=== PATIENT | female | born 1970 | race Caucasian/White ===

== ENCOUNTER → 2017-07-24 | Outpatient (CLI) | payer BC ==
--- NOTE | 2017-07-26 14:58 | MRI ---
STUDY: MRI OF THE BRAIN WITHOUT GADOLINIUM HISTORY: Migraine with aura. Chronic headaches. Technique: Multiplanar multi-sequence MRI of the brain was obtained utilizing standard departmental p rotocol. Sagittal and axial T1, axial T2, FLAIR, diffusion (DWI/ADC) images through the brain were pe rformed. Comparison: None. Findings: The sulci, cisterns and ventricles are age appropriate. There are multiple scattered foci of T2 prolo ngation in the periventricular and subcortical white matter of both hemispheres. This is a nonspecifi c finding which may be seen with microangiopathic change or demyelinating disease in a patient of thi s age. These findings may also be seen in neurologically normal individuals and in the setting of claudia jakub. There is no evidence of acute territorial infarction, hemorrhage, mass, mass effect, or midline shift . There are no abnormal intra-axial or extra-axial fluid collections. The major intracranial vascular flow voids appear intact. The vertebral arteries are codominant. IMPRESSION: 1. No evidence of acute intracranial abnormality. 2. Nonspecific white matter change. Clinical correlation is recommended. Reported By:
== END ==
LOC: RAD 15:33
PROVIDERS: ATTEND Nurse Practitioner Family
DX: G43.519 Persistent migraine aura without cerebral infarction, intractable, without status migrainosus (principal)
CPT/HCPCS: 70551

== ENCOUNTER → 2017-10-23 | Outpatient (CLI) | payer BC ==
--- NOTE | 2017-10-23 16:26 | CT ---
History: Sinusitis, left eye drainage, swelling, and redness. Study: CT sinus without contrast. Comparison: MRI brain dated July 24, 2017. Technique: Multiple contiguous axial images of the sinuses without contrast. Coronal/sagittal reforma ts were obtained. Findings: Moderate to severe mucosal thickening of the left paranasal sinuses. This is worse within t he left frontal sinus. Postsurgical changes status post partial ethmoid air cell resection and bilate ral uncinectomies. The right paranasal sinuses appear clear. The lamina papyracea appear intact. Ther e is no significant nasal septum deviation. The right sphenoethmoidal recess and frontoethmoidal rece ss are patent. The left frontal ethmoidal recess and sphenoethmoidal recess appear obstructed. The or bits are unremarkable. The visualized bones and surrounding soft tissues are unremarkable. Impression: Sinus disease as above. Reported By:
== END ==
LOC: RAD 15:12
PROVIDERS: ATTEND Nurse Practitioner Family
DX: J32.8 Other chronic sinusitis (principal)
CPT/HCPCS: 70486

== ENCOUNTER 2019-04-24 08:00 | Observation (INO) ==
[2019-04-24] MEDS ORDERED: SOLU-Medrol 125 MG VIAL ONE (08:16)
[2019-04-24] MEDS ORDERED: SOLU-Medrol 125 MG VIAL IVP ONE (08:18)
[2019-04-24] MEDS ORDERED: NS 1000 ML 1,000 ML ONE (08:22)
--- NOTE | 2019-04-24 08:33 | DR.PROGNOT ---
Hospital Progress Notes - Progress Note for Day of: Progress Note Date: 04/24/19 - Chief Complaint Chief Complaint: 48y female was admitted with progresive facial edema and allergic reaction involving face , back , chest wall and extremities . no SOB now but she feels some pressure . no wheezing . h/o recurrent sinusitis with facial edema in the past but not as severe . see H&P - Past Medical Family Social History Past Med/Fam/Surg Hx: No changes since H&P Allergies: Allergies verapamil Adverse Reaction (Verified 09/28/18 07:32) - Vital Signs Vital Signs: Blood Pressure 124/69 - Physical Exam Oriented: Normal Eyes: Other (severe facial edema ) Ear: Normal Nose: Normal Throat: Normal Respiratory: Normal, OTHER (no wheezing ) GI:Auscultation: Normal GI: Tenderness: Normal Skin: Other (allergic reaction on the back and legs) - Assessment and Plan 1: severe allergic reaction with facial edema . recurrent severe sinusitis with facial edema . on IV steroids and IV ATB . close observation for any resperatory distress . to have head CT , chest xray anf EKG.
[2019-04-24] MEDS: NS 1000 ML 1,000 ML IV SCH (08:47)
[2019-04-24 09:06] LABS: BASOPHILS # (AUTO) 0.1 X10^3/uL (0.0-0.1); BASOPHILS % (AUTO) 0.8 % (0.2-1.0); EOSINOPHILS # (AUTO) 0.2 x10^3/uL (0.0-0.2); EOSINOPHILS % (AUTO) 1.4 % (0.9-2.9); HEMATOCRIT 47.2 % (36.0-47.0); HEMOGLOBIN 16.2 g/dL (12.0-16.0); LYMPHOCYTES # (AUTO) 1.3 X10^3/uL (1.3-2.9); LYMPHOCYTES % (AUTO) 10.8 % (21.0-51.0); MEAN CORPUSCULAR HEMOGLOBIN 33.5 pg (27.0-34.0); MEAN CORPUSCULAR HGB CONC 34.4 g/dL (33.0-35.0); MEAN CORPUSCULAR VOLUME 97.2 fL (80.0-100.0); MEAN PLATELET VOLUME 8.7 fL (7.4-11.0); MONOCYTES # (AUTO) 0.7 x10^3/uL (0.3-0.8); MONOCYTES % (AUTO) 6.3 % (0.0-13.0); NEUTROPHILS # (AUTO) 9.5 x10^3/uL (2.2-4.8); NEUTROPHILS % (AUTO) 80.7 % (42.0-75.0); PLATELET COUNT 228 X10^3/uL (150.0-450.0); RED BLOOD COUNT 4.85 X10^6/uL (3.5-5.4); RED CELL DISTRIBUTION WIDTH 12.4 % (11.6-16.5); WHITE BLOOD COUNT 11.8 X10^3/uL (3.6-10.0)
[2019-04-24] MEDS: ROCEPHIN VIAL 1 GRAM IVP SCH ×2 (09:09→20:52)
[2019-04-24 09:19] LABS: ALANINE AMINOTRANSFERASE 10 Units/L (12-78); ALBUMIN 3.6 g/dL (3.4-5.0); ALKALINE PHOSPHATASE 65 Units/L (46-116); ASPARTATE AMINO TRANSFERASE 12 Units/L (15-37); BLOOD UREA NITROGEN 7 mg/dL (7-18); CALCIUM 9.5 mg/dL (8.5-10.1); CARBON DIOXIDE 27.2 mmol/L (21-32); CHLORIDE 105 mmol/L (98-107); CREATININE 0.77 mg/dL (0.55-1.02); SODIUM 140 mmol/L (136-145); eGFR NON BLACK RACES > 60 (>60)
[2019-04-24] MEDS: TEMOVATE CREAM EXT SCH ×2 (11:25→20:30)
[2019-04-24] MEDS: BENADRYL CAP 50 MG PO SCH ×2 (11:25→20:36)
[2019-04-24] MEDS ORDERED: NS 100 ML IV 100 ML ONE (11:27)
--- NOTE | 2019-04-24 11:39 | RAD ---
HISTORY: Shortness of breath Study: AP portable chest Comparison: None Findings: The lungs are clear. The heart size is normal. Mild tortuosity of the aorta is present. No acute bony abnormalities are identified. IMPRESSION: 1. No radiographic evidence of acute cardiopulmonary disease. Reported By:
[2019-04-24 11:44] VITALS: BMI 24.9
[2019-04-24] MEDS ORDERED: MILK OF MAGNESIA PO PRN (11:52)
--- NOTE | 2019-04-24 12:50 | CT ---
HEAD CT WITHOUT AND WITH IV CONTRAST CLINICAL INDICATION: Severe angioedema. Acute sinusitis. TECHNIQUE: Axial CT images from skull base to vertex without and with IV contrast. Dose reduction techniques including Automated Exposure Control (AEC) and adjustment of mA and kV were utlized. COMPARISON: None FINDINGS: There is no abnormal brain parenchymal density. There is no evidence of acute infarction, intracranial hemorrhage, mass or mass effect, or abnormal extra-axial collection. The density of the larger dural venous sinuses is normal. The ventricles are normal in size, shape and position. The skull base and calvarium are normal. The included paranasal sinuses and mastoid air cells are predominantly clear. Soft tissue swelling the face appears to be present. Following administration of intravenous contrast material, there is no abnormal parenchymal or leptomeningeal enhancement. IMPRESSION: 1. No acute intracranial abnormality. 2. No evidence of acute or chronic sinusitis. 3. Soft tissue swelling the face. Reported By:
[2019-04-24] MEDS ORDERED: TYLENOL 325 MG TAB PO PRN (13:00)
[2019-04-24] MEDS: PEPCID 20 MG IV PREMIX* 20 MG/50 ML BAG IV SCH ×3 (13:47→20:35)
[2019-04-24] MEDS: SOLU-Medrol 125 MG VIAL IVP SCH ×2 (15:31→20:52)
[2019-04-24] MEDS: TORADOL TAB PO PRN (15:39)
[2019-04-24] MEDS: SINGULAIR TAB 10 MG PO SCH (20:36)
[2019-04-24] MEDS: COLACE CAP 100 MG PO SCH (20:37)
[2019-04-25] MEDS: SOLU-Medrol 125 MG VIAL IVP SCH ×4 (04:57→20:26)
[2019-04-25] MEDS: BENADRYL CAP 50 MG PO SCH ×3 (04:57→20:26)
[2019-04-25 05:12] LABS: BASOPHILS % (AUTO) 0.1 % (0.2-1.0); HEMATOCRIT 39.8 % (36.0-47.0); LYMPHOCYTES # (AUTO) 0.7 X10^3/uL (1.3-2.9); LYMPHOCYTES % (AUTO) 5.2 % (21.0-51.0); MEAN CORPUSCULAR HEMOGLOBIN 33.6 pg (27.0-34.0); MEAN CORPUSCULAR HGB CONC 34.7 g/dL (33.0-35.0); MEAN CORPUSCULAR VOLUME 97.1 fL (80.0-100.0); MEAN PLATELET VOLUME 8.9 fL (7.4-11.0); MONOCYTES # (AUTO) 0.3 x10^3/uL (0.3-0.8); MONOCYTES % (AUTO) 1.9 % (0.0-13.0); NEUTROPHILS # (AUTO) 13.1 x10^3/uL (2.2-4.8); NEUTROPHILS % (AUTO) 92.8 % (42.0-75.0); PLATELET COUNT 219 X10^3/uL (150.0-450.0); RED CELL DISTRIBUTION WIDTH 12.3 % (11.6-16.5); WHITE BLOOD COUNT 14.1 X10^3/uL (3.6-10.0)
[2019-04-25 05:22] LABS: ALANINE AMINOTRANSFERASE 11 Units/L (12-78); ALBUMIN 2.7 g/dL (3.4-5.0); ALKALINE PHOSPHATASE 52 Units/L (46-116); ASPARTATE AMINO TRANSFERASE 7 Units/L (15-37); BLOOD UREA NITROGEN 9 mg/dL (7-18); CALCIUM 8.3 mg/dL (8.5-10.1); CARBON DIOXIDE 24.3 mmol/L (21-32); CHLORIDE 106 mmol/L (98-107); COR CA(FOR HYPOALB) 9.3 mg/dL (8.5-10.1); COR NA(FOR HYPERGLY) 141 mmol/L (136-145); CREATININE 0.75 mg/dL (0.55-1.02); MAGNESIUM 1.8 mg/dL (1.7-2.9); SODIUM 139 mmol/L (136-145); TOTAL PROTEIN 5.9 g/dL (6.4-8.2); eGFR NON BLACK RACES > 60 (>60)
[2019-04-25 05:53] LABS: HEMOGLOBIN 13.8 g/dL (12.0-16.0)
[2019-04-25 05:54] LABS: BAND NEUTROPHILS % 3 % (0-10); PLATELET MORPHOLOGY COMMENT NORMAL (NORMAL)
[2019-04-25] MEDS ORDERED: POTASSIUM CHLORIDE LIQ 20 MEQ UDC PO PRN (05:54)
[2019-04-25] MEDS ORDERED: K-RIDER 10 MEQ/NS 100 ML 10 MEQ/100 ML BAG IV PRN (05:54)
[2019-04-25] MEDS ORDERED: KLOR-CON PO PRN (05:54)
[2019-04-25] MEDS ORDERED: MICRO K EXTEN CAP 10 MEQ PO PRN (05:54)
[2019-04-25] MEDS ORDERED: POTASSIUM CHL 40 MEQ/NS 0.45% 500 ML IV PRN (05:54)
[2019-04-25] MEDS ORDERED: K-DUR TAB 20 MEQ PO PRN (05:54)
[2019-04-25] MEDS ORDERED: POTASSIUM CHL 60 MEQ/NS 0.45% 500 ML IV PRN (05:54)
[2019-04-25] MEDS: NS 1000 ML 1,000 ML IV SCH ×2 (06:21→08:37)
[2019-04-25] MEDS: PEPCID 20 MG IV PREMIX* 20 MG/50 ML BAG IV SCH ×2 (08:31→20:26)
[2019-04-25] MEDS: TEMOVATE CREAM EXT SCH ×2 (08:33→20:26)
[2019-04-25] MEDS: ROCEPHIN VIAL 1 GRAM IVP SCH ×2 (08:33→20:26)
--- NOTE | 2019-04-25 09:03 | DR.PROGNOT ---
Hospital Progress Notes - Progress Note for Day of: Progress Note Date: 04/25/19 - Chief Complaint Chief Complaint: facial swelling is less , able to open her eyes . no SOB , no wheezing . O2 sat is normal . on steroids and ATB, - Past Medical Family Social History Past Med/Fam/Surg Hx: No changes since H&P Allergies: Allergies verapamil Adverse Reaction (Severe, Verified 04/24/19 08:33) RASH SATISH HAIR COLOR Allergy (Severe, Uncoded 04/24/19 08:33) ANEMIA TAPE Allergy (Severe, Uncoded 04/24/19 08:33) RASH - Vital Signs Vital Signs: Temperature 98.9 F Pulse Rate [Right Brachial] 102 Respiratory Rate 18 Blood Pressure [Right Arm] 145/88 Blood Pressure 124/69 O2 Sat by Pulse Oximetry 99 - Physical Exam Oriented: Normal Eyes: Other (severe facial edema ) Ear: Normal Nose: Normal Throat: Normal Respiratory: Normal, OTHER (no wheezing ) GI:Auscultation: Normal GI: Tenderness: Normal Skin: Other (allergic reaction on the back and legs) Speech Pattern: Clear, Appropriate - Laboratory and Diagnostics Result Diagrams: 04/25/19 04:13 04/25/19 04:13 Labs: Laboratory WBC 14.1 X10^3/uL (3.6-10.0) H 04/25/19 04:13 RBC 4.10 X10^6/uL (3.5-5.4) 04/25/19 04:13 Hgb 13.8 g/dL (12.0-16.0) D 04/25/19 04:13 Hct 39.8 % (36.0-47.0) 04/25/19 04:13 MCV 97.1 fL (80.0-100.0) 04/25/19 04:13 MCH 33.6 pg (27.0-34.0) 04/25/19 04:13 MCHC 34.7 g/dL (33.0-35.0) 04/25/19 04:13 RDW 12.3 % (11.6-16.5) 04/25/19 04:13 Plt Count 219 X10^3/uL (150.0-450.0) 04/25/19 04:13 Plt Count Comment Adequate (ADEQUATE) 04/25/19 04:13 MPV 8.9 fL (7.4-11.0) 04/25/19 04:13 Neut % (Auto) 92.8 % (42.0-75.0) H 04/25/19 04:13 Lymph % (Auto) 5.2 % (21.0-51.0) L 04/25/19 04:13 [place] % (Auto) 1.9 % (0.0-13.0) 04/25/19 04:13 Eos % (Auto) 0.0 % (0.9-2.9) L 04/25/19 04:13 Baso % (Auto) 0.1 % (0.2-1.0) L 04/25/19 04:13 Neut # (Auto) 13.1 x10^3/uL (2.2-4.8) H 04/25/19 04:13 Lymph # (Auto) 0.7 X10^3/uL (1.3-2.9) L 04/25/19 04:13 [place] # (Auto) 0.3 x10^3/uL (0.3-0.8) 04/25/19 04:13 Eos # (Auto) 0.0 x10^3/uL (0.0-0.2) 04/25/19 04:13 Baso # (Auto) 0.0 X10^3/uL (0.0-0.1) 04/25/19 04:13 Absolute Nucleated RBC 0.0 /100WBC 04/25/19 04:13 Total Counted 100 04/25/19 04:13 Neutrophils % (Manual) 91 % (39-76) H 04/25/19 04:13 Band Neutrophils % 3 % (0-10) 04/25/19 04:13 Lymphocytes % (Manual) 6 % (13-43) L 04/25/19 04:13 Plt Morphology Comment Normal (NORMAL) 04/25/19 04:13 RBC Morphology Normal (NORMAL) 04/25/19 04:13 Sodium 139 mmol/L (136-145) 04/25/19 04:13 Corrected Sodium 141 mmol/L (136-145) 04/25/19 04:13 Potassium 3.3 mmol/L (3.5-5.1) L 04/25/19 04:13 Chloride 106 mmol/L (98-107) 04/25/19 04:13 Carbon Dioxide 24.3 mmol/L (21-32) 04/25/19 04:13 BUN 9 mg/dL (7-18) 04/25/19 04:13 Creatinine 0.75 mg/dL (0.55-1.02) 04/25/19 04:13 Est GFR (MDRD) Af Amer > 60 (>60) 04/25/19 04:13 Est GFR (MDRD) Non-Af > 60 (>60) 04/25/19 04:13 Glucose 173 mg/dL (65-99) H 04/25/19 04:13 Calcium 8.3 mg/dL (8.5-10.1) L 04/25/19 04:13 Corrected Calcium 9.3 mg/dL (8.5-10.1) 04/25/19 04:13 Magnesium 1.8 mg/dL (1.7-2.9) 04/25/19 04:13 Total Bilirubin 0.30 mg/dL (0.2-1.0) 04/25/19 04:13 AST 7 Units/L (15-37) L 04/25/19 04:13 ALT 11 Units/L (12-78) L 04/25/19 04:13 Alkaline Phosphatase 52 Units/L (46-116) 04/25/19 04:13 Total Protein 5.9 g/dL (6.4-8.2) L 04/25/19 04:13 Albumin 2.7 g/dL (3.4-5.0) L 04/25/19 04:13 Globulin 3.2 g/dL (2.5-4.5) 04/25/19 04:13 Albumin/Globulin Ratio 0.8 Ratio (1.1-2.1) L 04/25/19 04:13 - Assessment and Plan 1: severe allergic reaction with facial edema . h/o recurrent sinusitis. on IV steroids and IV ATB . close observation for any respiratory distress . same IV steroids and ATB. - Problem Patient Problems: Patient Problems Edema (Acute) R60.9 Allergic reaction (Acute) T78.40XA
[2019-04-25] MEDS: FLONASE NASAL SPRAY ENOSTRIL SCH (10:58)
[2019-04-25] MEDS ORDERED: ARTIFICIAL TEARS DROPS AFFEYE PRN (14:08)
[2019-04-25] MEDS: COLACE CAP 100 MG PO SCH ×2 (20:26→21:01)
[2019-04-25] MEDS: SINGULAIR TAB 10 MG PO SCH (20:26)
[2019-04-25] MEDS: TORADOL TAB PO PRN (20:28)
[2019-04-26] MEDS: BENADRYL CAP 50 MG PO SCH ×2 (02:19→10:27)
[2019-04-26] MEDS: SOLU-Medrol 125 MG VIAL IVP SCH ×2 (02:19→09:00)
[2019-04-26 05:45] LABS: BASOPHILS % (AUTO) 0 % (0.2-1.0); HEMATOCRIT 40.8 % (36.0-47.0); HEMOGLOBIN 13.9 g/dL (12.0-16.0); LYMPHOCYTES # (AUTO) 0.6 X10^3/uL (1.3-2.9); LYMPHOCYTES % (AUTO) 4.4 % (21.0-51.0); MEAN CORPUSCULAR HEMOGLOBIN 33.3 pg (27.0-34.0); MEAN CORPUSCULAR HGB CONC 34.1 g/dL (33.0-35.0); MEAN CORPUSCULAR VOLUME 97.4 fL (80.0-100.0); MEAN PLATELET VOLUME 9.4 fL (7.4-11.0); MONOCYTES # (AUTO) 0.2 x10^3/uL (0.3-0.8); MONOCYTES % (AUTO) 1.5 % (0.0-13.0); NEUTROPHILS # (AUTO) 11.7 x10^3/uL (2.2-4.8); NEUTROPHILS % (AUTO) 94.1 % (42.0-75.0); PLATELET COUNT 218 X10^3/uL (150.0-450.0); RED BLOOD COUNT 4.18 X10^6/uL (3.5-5.4); RED CELL DISTRIBUTION WIDTH 12.4 % (11.6-16.5); WHITE BLOOD COUNT 12.5 X10^3/uL (3.6-10.0)
[2019-04-26 05:54] LABS: ALANINE AMINOTRANSFERASE 11 Units/L (12-78); ALBUMIN 2.8 g/dL (3.4-5.0); ALKALINE PHOSPHATASE 49 Units/L (46-116); ASPARTATE AMINO TRANSFERASE < 6 Units/L (15-37); BLOOD UREA NITROGEN 11 mg/dL (7-18); CARBON DIOXIDE 24.9 mmol/L (21-32); CHLORIDE 106 mmol/L (98-107); COR NA(FOR HYPERGLY) 142 mmol/L (136-145); CREATININE 0.66 mg/dL (0.55-1.02); SODIUM 141 mmol/L (136-145); eGFR NON BLACK RACES > 60 (>60)
[2019-04-26 06:50] LABS: PLATELET MORPHOLOGY COMMENT NORMAL (NORMAL)
[2019-04-26] MEDS: ROCEPHIN VIAL 1 GRAM IVP SCH (09:00)
[2019-04-26] MEDS: PEPCID 20 MG IV PREMIX* 20 MG/50 ML BAG IV SCH (09:00)
[2019-04-26] MEDS: FLONASE NASAL SPRAY ENOSTRIL SCH (09:00)
[2019-04-26] MEDS: TEMOVATE CREAM EXT SCH (09:00)
[2019-04-26] MEDS: NS 1000 ML 1,000 ML IV SCH (10:26)
[2019-04-26 10:47] VITALS: BP 158/86
--- NOTE | 2019-04-26 12:50 | DR.PROGNOT ---
Hospital Progress Notes - Progress Note for Day of: Progress Note Date: 04/26/19 - Chief Complaint Chief Complaint: facial swelling is less , able to open her eyes . no SOB , no wheezing . O2 sat is normal . on steroids and ATB, - Past Medical Family Social History Past Med/Fam/Surg Hx: No changes since H&P Allergies: Allergies verapamil Adverse Reaction (Severe, Verified 04/24/19 08:33) RASH SATISH HAIR COLOR Allergy (Severe, Uncoded 04/24/19 08:33) ANEMIA TAPE Allergy (Severe, Uncoded 04/24/19 08:33) RASH - Vital Signs Vital Signs: Temperature 97.7 F Pulse Rate [Right Brachial] 88 Respiratory Rate 18 Blood Pressure [Right Arm] 158/86 Blood Pressure 124/69 O2 Sat by Pulse Oximetry 97 - Physical Exam Oriented: Normal Eyes: Other (severe facial edema ) Ear: Normal Nose: Normal Throat: Normal Respiratory: Normal, OTHER (no wheezing ) GI:Auscultation: Normal GI: Tenderness: Normal Skin: Other (allergic reaction on the back and legs) Speech Pattern: Clear, Appropriate - Laboratory and Diagnostics Result Diagrams: 04/26/19 04:42 04/26/19 04:42 Labs: Laboratory WBC 12.5 X10^3/uL (3.6-10.0) H 04/26/19 04:42 RBC 4.18 X10^6/uL (3.5-5.4) 04/26/19 04:42 Hgb 13.9 g/dL (12.0-16.0) 04/26/19 04:42 Hct 40.8 % (36.0-47.0) 04/26/19 04:42 MCV 97.4 fL (80.0-100.0) 04/26/19 04:42 MCH 33.3 pg (27.0-34.0) 04/26/19 04:42 MCHC 34.1 g/dL (33.0-35.0) 04/26/19 04:42 RDW 12.4 % (11.6-16.5) 04/26/19 04:42 Plt Count 218 X10^3/uL (150.0-450.0) 04/26/19 04:42 Plt Count Comment Adequate (ADEQUATE) 04/26/19 04:42 MPV 9.4 fL (7.4-11.0) 04/26/19 04:42 Neut % (Auto) 94.1 % (42.0-75.0) H 04/26/19 04:42 Lymph % (Auto) 4.4 % (21.0-51.0) L 04/26/19 04:42 [place] % (Auto) 1.5 % (0.0-13.0) 04/26/19 04:42 Eos % (Auto) 0.0 % (0.9-2.9) L 04/26/19 04:42 Baso % (Auto) 0 % (0.2-1.0) L 04/26/19 04:42 Neut # (Auto) 11.7 x10^3/uL (2.2-4.8) H 04/26/19 04:42 Lymph # (Auto) 0.6 X10^3/uL (1.3-2.9) L 04/26/19 04:42 [place] # (Auto) 0.2 x10^3/uL (0.3-0.8) L 04/26/19 04:42 Eos # (Auto) 0.0 x10^3/uL (0.0-0.2) 04/26/19 04:42 Baso # (Auto) 0.0 X10^3/uL (0.0-0.1) 04/26/19 04:42 Absolute Nucleated RBC 0.0 /100WBC 04/26/19 04:42 Total Counted 100 04/26/19 04:42 Neutrophils % (Manual) 92 % (39-76) H 04/26/19 04:42 Band Neutrophils % 3 % (0-10) 04/25/19 04:13 Lymphocytes % (Manual) 7 % (13-43) L 04/26/19 04:42 Monocytes % (Manual) 1 % (4-9) L 04/26/19 04:42 Plt Morphology Comment Normal (NORMAL) 04/26/19 04:42 RBC Morphology Normal (NORMAL) 04/26/19 04:42 Sodium 141 mmol/L (136-145) 04/26/19 04:42 Corrected Sodium 142 mmol/L (136-145) 04/26/19 04:42 Potassium 3.7 mmol/L (3.5-5.1) 04/26/19 04:42 Chloride 106 mmol/L (98-107) 04/26/19 04:42 Carbon Dioxide 24.9 mmol/L (21-32) 04/26/19 04:42 BUN 11 mg/dL (7-18) 04/26/19 04:42 Creatinine 0.66 mg/dL (0.55-1.02) 04/26/19 04:42 Est GFR (MDRD) Af Amer > 60 (>60) 04/26/19 04:42 Est GFR (MDRD) Non-Af > 60 (>60) 04/26/19 04:42 Glucose 150 mg/dL (65-99) H 04/26/19 04:42 Calcium 8.0 mg/dL (8.5-10.1) L 04/26/19 04:42 Corrected Calcium 9.0 mg/dL (8.5-10.1) 04/26/19 04:42 Magnesium 1.8 mg/dL (1.7-2.9) 04/25/19 04:13 Total Bilirubin 0.20 mg/dL (0.2-1.0) 04/26/19 04:42 AST < 6 Units/L (15-37) L 04/26/19 04:42 ALT 11 Units/L (12-78) L 04/26/19 04:42 Alkaline Phosphatase 49 Units/L (46-116) 04/26/19 04:42 Total Protein 6.0 g/dL (6.4-8.2) L 04/26/19 04:42 Albumin 2.8 g/dL (3.4-5.0) L 04/26/19 04:42 Globulin 3.2 g/dL (2.5-4.5) 04/26/19 04:42 Albumin/Globulin Ratio 0.9 Ratio (1.1-2.1) L 04/26/19 04:42 - Assessment and Plan 1: improving severe allergic reaction with facial edema . h/o recurrent sinusitis. on IV steroids ( will start tapering it ) and IV ATB . close observation for any respiratory distress . same IV steroids and ATB. - Problem Patient Problems: Patient Problems Angio-edema (Acute) T78.3XXA Edema (Acute) R60.9 Allergic reaction (Acute) T78.40XA
[2019-04-26] MEDS ORDERED: SOLU-Medrol 125 MG VIAL IVP SCH (14:00)
== END 2019-04-26 14:35 | disposition home or self-care (01) ==
LOC: MED/SURG
PROVIDERS: ADMIT Surgery; ATTEND Surgery
DX: E87.6 Hypokalemia; J32.8 Other chronic sinusitis; R94.31 Abnormal electrocardiogram [ECG] [EKG]; R51 Headache; L23.4 Allergic contact dermatitis due to dyes; R73.09 Other abnormal glucose; T78.3XXA Angioneurotic edema, initial encounter
CPT/HCPCS: 36415; 70470; 71010; 71045; 80053; 83735; 84132; 85025; 93005; 94762; 96367; 96374; A4222; S0028; G0378; J0696; J2930; J3490; J7030; J7050